=== PATIENT | male | born 1950 | race Caucasian/White ===

== ENCOUNTER 2019-01-07 10:10 | Observation (INO) ==
[~2019-01-07 10:10] MED LIST: LIDOCAINE W/ SODIUM BICARB 0.5 ML SYR SUBD ONE; Lactated Ringers 1,000 ML PRIMARY IV ONE; Nasal Sanitizer POPSWAB ampule 3 AMP (Nozin) PREOP DOSE ENOS SCH; Vancomycin-PHA to Dose IV PRN; ceFAZolin Inj 2gm (Premix) 2 GM/50 ML BAG IV ONE
[2019-01-07] MEDS ORDERED: Vancomycin Inj 1.25gm vial IV ONE (10:12)
[2019-01-07] MEDS ORDERED: Lactated Ringers 1,000 ML PRIMARY IV ONE (10:13)
[2019-01-07] MEDS ORDERED: ceFAZolin Inj 2gm (Premix) 2 GM/50 ML BAG IV ONE (10:13)
[2019-01-07] MEDS ORDERED: LIDOCAINE W/ SODIUM BICARB 0.5 ML SYR ONE (10:13)
[2019-01-07] MEDS ORDERED: Sodium Chloride 0.9% 250 ML ONE (10:14)
[2019-01-07] MEDS ORDERED: BACITRACIN 50,000 UNIT VIAL IRRIG ONE (12:48)
[2019-01-07] MEDS ORDERED: BUPIVACAINE 0.25% W/ EPI - 10 ML VIAL ONE ×2 (12:48→14:02)
[2019-01-07] MEDS ORDERED: Sodium Chloride 0.9% vial 20 ML ONE (12:48)
[2019-01-07] MEDS ORDERED: fentaNYL Inj 250 MCG/5 ML VIAL ONE (13:35)
[2019-01-07] MEDS ORDERED: PROPOFOL 10 MG/1 ML (200 MG/20 ML) VIAL IV ONE (13:43)
[2019-01-07] MEDS ORDERED: ROCURONIUM 10 MG/1 ML - 5 ML VIAL IVP ONE (13:58)
[2019-01-07] MEDS ORDERED: SUCCINYLCHOLINE CHLORIDE 20 MG/1 ML - 10 ML ONE (13:58)
[2019-01-07] MEDS ORDERED: fentaNYL Inj 100 MCG/2 ML VIAL IVP PRN (14:48)
[2019-01-07] MEDS ORDERED: HYDROmorphone 2 MG/1 ML IVP PRN (14:48)
[2019-01-07] MEDS ORDERED: LIDOCAINE W/ SODIUM BICARB 0.5 ML SYR SUBD PRN (14:48)
[2019-01-07] MEDS ORDERED: PROMETHAZINE 25 MG/1 ML VIAL IM PRN ×2 (14:48→15:29)
[2019-01-07] MEDS ORDERED: HYDROmorphone 2 MG/1 ML ONE (15:09)
[2019-01-07] MEDS ORDERED: oxyCODONE-ACETAMINOPHEN 5-325 TAB PO PRN (15:29)
[2019-01-07] MEDS ORDERED: MORPHINE SULFATE 2 MG/1 ML IVP PRN (15:29)
[2019-01-07] MEDS ORDERED: oxyCODONE/APAP 7.5/325 Tab 1 TAB TAB PO PRN (15:29)
[2019-01-07] MEDS ORDERED: MAGNESIUM CITRATE 296 ML SOLUTION PO PRN (15:29)
[2019-01-07] MEDS ORDERED: BISACODYL 5 MG TABLET PO PRN (15:29)
[2019-01-07] MEDS ORDERED: MAGNESIUM 400 MG/5 ML - 30 ML (MILK OF MAGNESIA) PO PRN (15:29)
[2019-01-07] MEDS ORDERED: Fleet Enema 133ml RECTAL PRN (15:29)
[2019-01-07] MEDS ORDERED: Ondansetron ODT Tab 4 MG TAB PO PRN (15:29)
[2019-01-07] MEDS ORDERED: DOCUSATE 100 MG CAPSULE PO PRN (15:29)
[2019-01-07] MEDS ORDERED: oxyCODONE/APAP 10/325 Tab 1 EACH TAB PO PRN (15:29)
[2019-01-07] MEDS ORDERED: ONDANSETRON 4 MG/2 ML VIAL IVP PRN (15:29)
[2019-01-07] MEDS ORDERED: Vancomycin-PHA to Dose IV SCH (15:29)
[2019-01-07] MEDS ORDERED: Prochlorperazine Edisylate Inj 10mg/2ml vial IVP PRN (15:29)
[2019-01-07] MEDS ORDERED: HYDROcodone-APAP 5 MG -325 MG TABLET PO PRN (15:29)
[2019-01-07] MEDS ORDERED: HYDROcodone-APAP 7.5 MG-325 MG TABLET PO PRN (15:29)
[2019-01-07] MEDS ORDERED: LISINOPRIL 20 MG TABLET PO ONE (16:15)
[2019-01-07] MEDS: ceFAZolin Inj 2gm (Premix) 2 GM/50 ML BAG IV SCH (20:34)
[2019-01-07] MEDS: HYDROcodone-APAP 10 MG-325 MG TABLET PO PRN (20:34)
[2019-01-08] MEDS: HYDROcodone-APAP 10 MG-325 MG TABLET PO PRN (01:45)
[2019-01-08] MEDS: ceFAZolin Inj 2gm (Premix) 2 GM/50 ML BAG IV SCH (04:50)
[2019-01-08 05:34] LABS: BASOPHILS # (AUTO) 0.03 10*3/UL; BASOPHILS % (AUTO) 0.4 % (0-1); EOSINOPHILS # (AUTO) 0.16 10*3/UL; EOSINOPHILS % (AUTO) 2.2 % (0-8); Hematocrit [HCT] 44.7 % (42.0-52.0); LYMPHOCYTES # (AUTO) 0.97 10*3/uL; MEAN CORPUSCULAR HGB CONC 33.6 g/dL (33-37); MEAN CORPUSCULAR VOLUME 96.8 FL (80-90); MEAN PLATELET VOLUME 10.1 FL (7.4-12.2); MONOCYTES # (AUTO) 0.74 10*3/UL (0.3-0.8); MONOCYTES % (AUTO) 10.2 % (5-15); NEUTROPHILS # (AUTO) 5.34 10*3/UL; NEUTROPHILS % (AUTO) 73.7 % (50-80); RED BLOOD COUNT 4.62 10^6/uL (4.70-6.10)
[2019-01-08 05:49] LABS: PLATELET MORPHOLOGY COMMENT NORMAL MORPHOLOGY (NORM); RBC MORPHOLOGY COMMENT NORMAL MORPHOLOGY (NORM); WBC MORPHOLOGY COMMENT NORMAL MORPHOLOGY (NORM)
[2019-01-08 05:51] LABS: BLOOD UREA NITROGEN 15 mg/dL (7-22); BUN/CREATININE RATIO 18.75 (6-20)
[2019-01-08 06:57] VITALS: BP 139/77; RESP 16; TEMP 98.4; O2SAT 98
[2019-01-08] MEDS ORDERED: PANTOPRAZOLE 40 MG TABLET PO SCH (07:00)
[2019-01-08] MEDS ORDERED: TAMSULOSIN 0.4 MG CAPSULE PO SCH (09:00)
[2019-01-08] MEDS ORDERED: FINASTERIDE 5 MG TABLET PO SCH (09:00)
[2019-01-08] MEDS ORDERED: LISINOPRIL 20 MG TABLET PO SCH (09:00)
[2019-01-08] MEDS ORDERED: DULOXETINE 30 MG CAPSULE PO SCH (09:00)
== END 2019-01-08 08:30 | disposition home or self-care (01) ==
LOC: MED/SURG 10:10 → OR 10:10 → OPS 10:11
PROVIDERS: ADMIT Neurological Surgery; ATTEND Neurological Surgery